=== PATIENT | female | born 1965 | race Caucasian/White ===

== ENCOUNTER 2019-12-29 12:48 | Inpatient (IN) ==
[~2019-12-29 12:48] MED LIST: Povidone-Iodine 45 ML, Sodium Chloride IRRigation 1,000 ML IR ONE; TOTAL JOINT MIXTURE (100ML) INTRAART ONE
[2019-12-29] MEDS ORDERED: Ethanol\\Acetic Acid\\Na Ace\\Ben 1,000 ML IRRIG.SOLN IR ONE ×3 (12:59→14:52)
[2019-12-29] MEDS ORDERED: Vancomycin 1,000 MG VIAL ONE (13:00)
[2019-12-29] MEDS ORDERED: CeFAZolin Syr 2,000MG/20 ML 2,000 MG/20 ML SYRINGE IVPB ONE (13:19)
[2019-12-29] MEDS ORDERED: Ringers Solution, Lactated 1,000 ML IVC SCH (13:30)
[2019-12-29] MEDS ORDERED: *HR* OxyCODONE ER (12 HR) 10 MG TABLET PO ONE (13:49)
[2019-12-29] MEDS ORDERED: Gabapentin 300 MG CAPSULE PO ONE (13:49)
[2019-12-29] MEDS ORDERED: *HR* Succinylcholine 200 MG/10 ML VIAL IVP ONE (13:50)
[2019-12-29] MEDS ORDERED: Ondansetron 4 MG/2 ML VIAL IVP PRN ×2 (13:50→17:29)
[2019-12-29] MEDS ORDERED: *HR* Propofol 200 MG/20 ML VIAL IVP ONE (13:50)
[2019-12-29] MEDS ORDERED: *HR* OxyCODONE Immed Rel 5 MG TABLET PO PRN (13:50)
[2019-12-29] MEDS ORDERED: *HR* Rocuronium Bromide 50 MG/5 ML VIAL ONE (13:50)
[2019-12-29] MEDS ORDERED: *HR* FentaNYL (PF) 100 MCG/2 ML VIAL ONE ×2 (13:50→14:33)
[2019-12-29] MEDS ORDERED: Lidocaine -MPF 2% 2 ML VIAL ONE (13:50)
[2019-12-29] MEDS ORDERED: *HR* HYDROmorphone PF 0.5 MG/0.5 ML SYRINGE IVP PRN (13:50)
[2019-12-29] MEDS ORDERED: Dexamethasone 4 MG/ML VIAL ONE (13:50)
[2019-12-29] MEDS ORDERED: Lidocaine -MPF 4% 5 ML AMPUL ONE (13:51)
[2019-12-29] MEDS ORDERED: *HR* Midazolam HCl 2 MG/2 ML VIAL ONE (13:51)
[2019-12-29] MEDS ORDERED: ROPIVACAINE/PF/NS 0.25% 1 EACH SYRINGE INTRAART ONE (13:57)
[2019-12-29] MEDS ORDERED: Tranexamic Acid 1,000 MG/10 ML VIAL ONE ×2 (14:03→14:04)
[2019-12-29] MEDS ORDERED: *HR* HYDROMORPHONE 2 MG/ML VIAL ONE ×2 (14:05→16:08)
[2019-12-29] MEDS ORDERED: *HR* PHENYLEPHRINE 1,000 MCG/10 ML SYRINGE IVP ONE (16:59)
[2019-12-29] MEDS ORDERED: MOM Conc 10 ML UD.LIQ PO PRN (17:29)
[2019-12-29] MEDS ORDERED: Naloxone 0.4 MG/ML INJ IVP PRN (17:29)
[2019-12-29] MEDS ORDERED: *HR* Dextrose 50 % in Water (Vial) 50 ML VIAL IVP PRN (17:29)
[2019-12-29] MEDS ORDERED: *HR* Promethazine 25 MG/ML VIAL IVP PRN (17:29)
[2019-12-29] MEDS ORDERED: D5% in Water 1,000 ML IVC PRN (17:29)
[2019-12-29] MEDS ORDERED: Sennosides 8.6 MG TABLET PO PRN (17:29)
[2019-12-29] MEDS ORDERED: Dextrose Gel 15 GM/37.5 ML TUBE PO PRN ×2 (17:29)
[2019-12-29 18:01] LABS: Hematocrit 35.9 % (35.3-44.9)
[2019-12-29] MEDS: Insulin LISPRO 300 UNITS/3 ML VIAL SQ SCH (18:27)
[2019-12-29] MEDS: Ascorbic Acid 500 MG TABLET PO SCH (18:27)
[2019-12-29] MEDS: Gabapentin 100 MG CAPSULE PO SCH ×2 (18:27→22:04)
[2019-12-29] MEDS: Venlafaxine XR (24 HR) 150 MG CAP.ER.24H PO SCH (22:04)
[2019-12-29] MEDS: *HR* OxyCODONE Immed Rel 5 MG TABLET PO PRN (22:04)
[2019-12-29] MEDS: CeFAZolin 2 GM/120 ML BAG IVPB SCH (22:05)
[2019-12-30] MEDS: Insulin LISPRO 300 UNITS/3 ML VIAL SQ SCH ×5 (00:23→21:32)
[2019-12-30] MEDS: Ringers Solution, Lactated 1,000 ML IVC SCH (00:30)
[2019-12-30 01:30] LABS: BUN/Creatinine Ratio 22 (6-26); Blood Urea Nitrogen 15 mg/dL (6-20); Calcium 8.7 mg/dL (8.6-10.3); Carbon Dioxide 22 mEq/L (23-29); Chloride 106 mEq/L (98-107); Glucose 216 mg/dL (70-105); Osmolality,Calculated 291 (280-300); Potassium 5.3 mEq/L (3.5-5.1); Sodium 137 mEq/L (136-145); eGFR For African Americans > 60 (> 60); eGFR For Non-African Americans > 60 (> 60)
[2019-12-30 01:46] LABS: Hemoglobin 10.9 g/dL (11.5-15.4); Red Blood Count 3.52 M/mcL (3.82-4.97); White Blood Count 14.9 K/mcL (4.3-11.1)
[2019-12-30 01:53] LABS: Hematocrit 35.7 % (35.3-44.9); Mean Corpuscular HGB Conc 30.5 g/dL (31.6-35.5); Mean Corpuscular Volume 101.4 fL (83.0-100.0); Mean Platelet Volume 10.1 fL (9.4-12.4); Platelet Count 223 K/mcL (140-400); Red Cell Distribution Width 13.4 % (11.5-14.5)
[2019-12-30 01:54] LABS: Basophils % 0.2 %; Eosinophils % 0.1 %; Immature Granulocytes % 1.1 % (0-4); Lymphocytes # 0.7 K/mcL (0.6-4.6); Lymphocytes % 4.8 %; Monocytes # 0.7 K/mcL (0.0-1.3); Monocytes % 4.4 %; Neutrophils # 13.3 K/mcL (1.6-8.9); Segmented Neutrophils % 89.4 %
[2019-12-30] MEDS: traZODone 50 MG TABLET PO SCH ×2 (03:47→21:13)
[2019-12-30] MEDS: *HR* OxyCODONE Immed Rel 5 MG TABLET PO PRN ×4 (05:45→20:05)
[2019-12-30] MEDS: CeFAZolin 2 GM/120 ML BAG IVPB SCH (05:45)
[2019-12-30] MEDS: Cholecalciferol (D-3) 1,000 UNIT (25MCG) TABLET PO SCH (08:13)
[2019-12-30] MEDS: Venlafaxine XR (24 HR) 150 MG CAP.ER.24H PO SCH ×2 (08:13→21:11)
[2019-12-30] MEDS: Multivit/Ca/Min/Fe/FA 1 TAB TABLET PO SCH (08:14)
[2019-12-30] MEDS: Ascorbic Acid 500 MG TABLET PO SCH ×2 (08:15→15:35)
[2019-12-30] MEDS: Gabapentin 100 MG CAPSULE PO SCH ×3 (08:15→21:12)
[2019-12-30] MEDS ORDERED: risperiDONE 1 MG TABLET PO SCH (09:00)
[2019-12-30] MEDS: Aspirin Enteric Coated 81 MG Tablet PO SCH (13:35)
[2019-12-30] MEDS: HYDROcodone BIT/Homatropine 5 MG TABLET PO PRN (17:57)
[2019-12-30] MEDS: risperiDONE 1 MG TABLET PO SCH (21:12)
[2019-12-31] MEDS: HYDROcodone BIT/Homatropine 5 MG TABLET PO PRN ×2 (00:50→20:00)
[2019-12-31 01:04] LABS: Basophils % 0.1 %; Eosinophils % 0.3 %; Hematocrit 28.6 % (35.3-44.9); Immature Granulocytes % 0.8 % (0-4); Lymphocytes # 1.4 K/mcL (0.6-4.6); Lymphocytes % 12.8 %; Mean Corpuscular HGB Conc 32.9 g/dL (31.6-35.5); Mean Corpuscular Hemoglobin 32.2 pg (28.0-33.3); Mean Corpuscular Volume 97.9 fL (83.0-100.0); Mean Platelet Volume 9.9 fL (9.4-12.4); Monocytes # 1.3 K/mcL (0.0-1.3); Monocytes % 11.7 %; Neutrophils # 8.1 K/mcL (1.6-8.9); Platelet Count 178 K/mcL (140-400); Red Blood Count 2.92 M/mcL (3.82-4.97); Red Cell Distribution Width 13.3 % (11.5-14.5); Segmented Neutrophils % 74.3 %; White Blood Count 10.9 K/mcL (4.3-11.1)
[2019-12-31 01:07] LABS: Hemoglobin 9.4 g/dL (11.5-15.4)
[2019-12-31 01:32] LABS: BUN/Creatinine Ratio 18 (6-26); Blood Urea Nitrogen 10 mg/dL (6-20); Calcium 8.5 mg/dL (8.6-10.3); Carbon Dioxide 25 mEq/L (23-29); Chloride 99 mEq/L (98-107); Glucose 126 mg/dL (70-105); Osmolality,Calculated 275 (280-300); Potassium 3.8 mEq/L (3.5-5.1); Sodium 132 mEq/L (136-145); eGFR For African Americans > 60 (> 60); eGFR For Non-African Americans > 60 (> 60)
[2019-12-31] MEDS: *HR* OxyCODONE Immed Rel 5 MG TABLET PO PRN ×4 (05:34→23:56)
[2019-12-31] MEDS: Insulin LISPRO 300 UNITS/3 ML VIAL SQ SCH ×3 (09:05→20:02)
[2019-12-31] MEDS: Multivit/Ca/Min/Fe/FA 1 TAB TABLET PO SCH (10:00)
[2019-12-31] MEDS: Venlafaxine XR (24 HR) 150 MG CAP.ER.24H PO SCH ×2 (10:00→20:01)
[2019-12-31] MEDS: Gabapentin 100 MG CAPSULE PO SCH ×3 (10:00→20:00)
[2019-12-31] MEDS: Cholecalciferol (D-3) 1,000 UNIT (25MCG) TABLET PO SCH (10:00)
[2019-12-31] MEDS: Ascorbic Acid 500 MG TABLET PO SCH ×2 (10:00→16:14)
[2019-12-31] MEDS: Aspirin Enteric Coated 81 MG Tablet PO SCH (10:01)
[2019-12-31] MEDS ORDERED: 0.9 % Sodium Chloride 250 ML ONE ×2 (18:16→22:08)
[2019-12-31] MEDS: traZODone 50 MG TABLET PO SCH (20:01)
[2019-12-31] MEDS: risperiDONE 1 MG TABLET PO SCH (20:01)
[2020-01-01 04:41] LABS: Basophils % 0.3 %; Eosinophils # 0.1 K/mcL (0.0-0.6); Eosinophils % 0.6 %; Hematocrit 27.8 % (35.3-44.9); Hemoglobin 8.7 g/dL (11.5-15.4); Immature Granulocytes % 1.3 % (0-4); Lymphocytes # 1.7 K/mcL (0.6-4.6); Lymphocytes % 17.7 %; Mean Corpuscular HGB Conc 31.3 g/dL (31.6-35.5); Mean Corpuscular Hemoglobin 30.7 pg (28.0-33.3); Mean Corpuscular Volume 98.2 fL (83.0-100.0); Monocytes # 1.1 K/mcL (0.0-1.3); Monocytes % 11.3 %; Neutrophils # 6.4 K/mcL (1.6-8.9); Nucleated Red Blood Cells 0.2 /100 WBC (0); Platelet Count 158 K/mcL (140-400); Red Blood Count 2.83 M/mcL (3.82-4.97); Red Cell Distribution Width 13.4 % (11.5-14.5); Segmented Neutrophils % 68.8 %; White Blood Count 9.4 K/mcL (4.3-11.1)
[2020-01-01] MEDS: HYDROcodone BIT/Homatropine 5 MG TABLET PO PRN (06:15)
[2020-01-01] MEDS: *HR* OxyCODONE Immed Rel 5 MG TABLET PO PRN ×3 (09:30→20:20)
[2020-01-01] MEDS: Cholecalciferol (D-3) 1,000 UNIT (25MCG) TABLET PO SCH (09:31)
[2020-01-01] MEDS: Gabapentin 100 MG CAPSULE PO SCH ×3 (09:31→20:20)
[2020-01-01] MEDS: Aspirin Enteric Coated 81 MG Tablet PO SCH (09:31)
[2020-01-01] MEDS: Venlafaxine XR (24 HR) 150 MG CAP.ER.24H PO SCH ×2 (09:31→20:20)
[2020-01-01] MEDS: Multivit/Ca/Min/Fe/FA 1 TAB TABLET PO SCH (09:32)
[2020-01-01] MEDS: Ascorbic Acid 500 MG TABLET PO SCH ×2 (09:32→17:08)
[2020-01-01] MEDS: Insulin LISPRO 300 UNITS/3 ML VIAL SQ SCH ×4 (09:35→20:17)
[2020-01-01] MEDS: Ringers Solution, Lactated 1,000 ML IVC SCH ×2 (16:20→17:04)
[2020-01-01] MEDS: traZODone 50 MG TABLET PO SCH (20:20)
[2020-01-01] MEDS: risperiDONE 1 MG TABLET PO SCH (20:20)
[2020-01-02] MEDS: Ringers Solution, Lactated 1,000 ML IVC SCH ×2 (05:15→17:54)
[2020-01-02 06:03] LABS: Basophils % 0.6 %; Eosinophils # 0.1 K/mcL (0.0-0.6); Eosinophils % 1.9 %; Hematocrit 28.1 % (35.3-44.9); Immature Granulocytes % 2.2 % (0-4); Lymphocytes # 1.7 K/mcL (0.6-4.6); Lymphocytes % 24.9 %; Mean Corpuscular Hemoglobin 31.8 pg (28.0-33.3); Mean Corpuscular Volume 99.3 fL (83.0-100.0); Mean Platelet Volume 9.6 fL (9.4-12.4); Monocytes # 0.6 K/mcL (0.0-1.3); Neutrophils # 4.3 K/mcL (1.6-8.9); Nucleated Red Blood Cells 0.4 /100 WBC (0); Platelet Count 166 K/mcL (140-400); Red Blood Count 2.83 M/mcL (3.82-4.97); Red Cell Distribution Width 13.4 % (11.5-14.5); Segmented Neutrophils % 61.4 %; White Blood Count 6.9 K/mcL (4.3-11.1)
[2020-01-02 06:24] LABS: BUN/Creatinine Ratio 18 (6-26); Blood Urea Nitrogen 9 mg/dL (6-20); Calcium 8.9 mg/dL (8.6-10.3); Carbon Dioxide 26 mEq/L (23-29); Chloride 105 mEq/L (98-107); Glucose 95 mg/dL (70-105); Osmolality,Calculated 284 (280-300); Potassium 3.7 mEq/L (3.5-5.1); Sodium 138 mEq/L (136-145); eGFR For African Americans > 60 (> 60); eGFR For Non-African Americans > 60 (> 60)
[2020-01-02] MEDS: Cholecalciferol (D-3) 1,000 UNIT (25MCG) TABLET PO SCH (09:19)
[2020-01-02] MEDS: Multivit/Ca/Min/Fe/FA 1 TAB TABLET PO SCH (09:19)
[2020-01-02] MEDS: Insulin LISPRO 300 UNITS/3 ML VIAL SQ SCH ×4 (09:19→20:48)
[2020-01-02] MEDS: *HR* OxyCODONE Immed Rel 5 MG TABLET PO PRN ×2 (09:19→14:37)
[2020-01-02] MEDS: Venlafaxine XR (24 HR) 150 MG CAP.ER.24H PO SCH ×2 (09:20→20:44)
[2020-01-02] MEDS: Gabapentin 100 MG CAPSULE PO SCH ×3 (09:20→20:43)
[2020-01-02] MEDS: Ascorbic Acid 500 MG TABLET PO SCH ×2 (09:20→17:58)
[2020-01-02] MEDS: Aspirin Enteric Coated 81 MG Tablet PO SCH (09:20)
[2020-01-02] MEDS: traZODone 50 MG TABLET PO SCH (20:43)
[2020-01-02] MEDS: risperiDONE 1 MG TABLET PO SCH (20:44)
[2020-01-02] MEDS: HYDROcodone BIT/Homatropine 5 MG TABLET PO PRN (22:09)
[2020-01-03 06:09] LABS: Basophils % 0.6 %; Eosinophils # 0.1 K/mcL (0.0-0.6); Eosinophils % 2.1 %; Hematocrit 25.8 % (35.3-44.9); Hemoglobin 8.3 g/dL (11.5-15.4); Immature Granulocytes % 2.7 % (0-4); Lymphocytes # 1.6 K/mcL (0.6-4.6); Lymphocytes % 24.8 %; Mean Corpuscular HGB Conc 32.2 g/dL (31.6-35.5); Mean Corpuscular Hemoglobin 31.9 pg (28.0-33.3); Mean Corpuscular Volume 99.2 fL (83.0-100.0); Mean Platelet Volume 9.4 fL (9.4-12.4); Monocytes # 0.6 K/mcL (0.0-1.3); Monocytes % 9.6 %; Neutrophils # 3.8 K/mcL (1.6-8.9); Platelet Count 200 K/mcL (140-400); Red Cell Distribution Width 13.6 % (11.5-14.5); Segmented Neutrophils % 60.2 %; White Blood Count 6.2 K/mcL (4.3-11.1)
[2020-01-03] MEDS: *HR* OxyCODONE Immed Rel 5 MG TABLET PO PRN ×4 (06:23→21:28)
[2020-01-03 06:27] LABS: BUN/Creatinine Ratio 15 (6-26); Blood Urea Nitrogen 8 mg/dL (6-20); Calcium 8.8 mg/dL (8.6-10.3); Carbon Dioxide 28 mEq/L (23-29); Chloride 107 mEq/L (98-107); Glucose 100 mg/dL (70-105); Osmolality,Calculated 288 (280-300); Potassium 3.8 mEq/L (3.5-5.1); Sodium 140 mEq/L (136-145); eGFR For African Americans > 60 (> 60); eGFR For Non-African Americans > 60 (> 60)
[2020-01-03] MEDS: Insulin LISPRO 300 UNITS/3 ML VIAL SQ SCH ×4 (07:20→21:25)
[2020-01-03] MEDS: Aspirin Enteric Coated 81 MG Tablet PO SCH (08:18)
[2020-01-03] MEDS: Multivit/Ca/Min/Fe/FA 1 TAB TABLET PO SCH (08:18)
[2020-01-03] MEDS: Gabapentin 100 MG CAPSULE PO SCH ×3 (08:18→21:24)
[2020-01-03] MEDS: Venlafaxine XR (24 HR) 150 MG CAP.ER.24H PO SCH ×2 (08:18→21:25)
[2020-01-03] MEDS: Ascorbic Acid 500 MG TABLET PO SCH ×2 (08:18→17:06)
[2020-01-03] MEDS: Cholecalciferol (D-3) 1,000 UNIT (25MCG) TABLET PO SCH (08:19)
[2020-01-03] MEDS: HYDROcodone BIT/Homatropine 5 MG TABLET PO PRN (13:56)
[2020-01-03] MEDS: Ringers Solution, Lactated 1,000 ML IVC SCH ×2 (21:25→21:26)
[2020-01-03] MEDS: traZODone 50 MG TABLET PO SCH (21:25)
[2020-01-03] MEDS: risperiDONE 1 MG TABLET PO SCH (21:25)
[2020-01-04] MEDS: *HR* OxyCODONE Immed Rel 5 MG TABLET PO PRN ×3 (06:17→16:23)
[2020-01-04] MEDS: Ringers Solution, Lactated 1,000 ML IVC SCH (08:10)
[2020-01-04] MEDS: Insulin LISPRO 300 UNITS/3 ML VIAL SQ SCH ×2 (08:11→11:29)
[2020-01-04] MEDS: Gabapentin 100 MG CAPSULE PO SCH ×2 (08:12→14:09)
[2020-01-04] MEDS: Cholecalciferol (D-3) 1,000 UNIT (25MCG) TABLET PO SCH (08:12)
[2020-01-04] MEDS: Ascorbic Acid 500 MG TABLET PO SCH (08:12)
[2020-01-04] MEDS: Aspirin Enteric Coated 81 MG Tablet PO SCH (08:12)
[2020-01-04] MEDS: Multivit/Ca/Min/Fe/FA 1 TAB TABLET PO SCH (08:12)
[2020-01-04] MEDS: Venlafaxine XR (24 HR) 150 MG CAP.ER.24H PO SCH (08:12)
[2020-01-04 13:12] VITALS: BP 137/86
[2020-01-04] MEDS: HYDROcodone BIT/Homatropine 5 MG TABLET PO PRN (14:09)
[2020-01-04 15:00] LABS: Adenovirus Not Detected (Not Detect); Bordetella Pertussis Not Detected (Not Detect); Chlamydophila pneumoniae Not Detected (Not Detect); Coronavirus 229E Not Detected (Not Detect); Coronavirus HKU1 Not Detected (Not Detect); Coronavirus NL63 Not Detected (Not Detect); Coronavirus OC43 Not Detected (Not Detect); Human Metapneumovirus Not Detected (Not Detect); Human Rhinovirus/Enterovirus Not Detected (Not Detect); Influenza A Subtype 2009 H1 Not Detected (Not Detect); Influenza B Not Detected (Not Detect); Mycoplasma pneumoniae Not Detected (Not Detect); Parainfluenza Virus 1 Not Detected (Not Detect); Parainfluenza Virus 2 Not Detected (Not Detect); Parainfluenza Virus 3 Not Detected (Not Detect); Parainfluenza Virus 4 Not Detected (Not Detect); Respiratory Syncytial Virus Not Detected (Not Detect); SARS-CoV-2 Not Detected (Not Detect)
== END 2020-01-04 16:47 | DRG 462 ==
LOC: SAMDAY 12:48 → 3NENU 12:48
PROVIDERS: ADMIT Orthopaedic Surgery; ATTEND Orthopaedic Surgery

== ENCOUNTER 2020-09-23 11:23 | Observation (INO) ==
[2020-09-23] MEDS ORDERED: Ketorolac 15 MG/ML VIAL IVP ONE (11:42)
[2020-09-23] MEDS ORDERED: Isovue-370 500 ML BOTTLE IVP ONE (11:43)
[2020-09-23 11:53] LABS: Basophils % 0.4 %; Eosinophils % 0.3 %; Hematocrit 37.7 % (35.3-44.9); Hemoglobin 12.5 g/dL (11.5-15.4); Immature Granulocytes % 1.7 % (0-4); Lymphocytes # 3.4 K/mcL (0.6-4.6); Mean Corpuscular HGB Conc 33.2 g/dL (31.6-35.5); Mean Corpuscular Hemoglobin 31.4 pg (28.0-33.3); Mean Corpuscular Volume 94.7 fL (83.0-100.0); Mean Platelet Volume 9.9 fL (9.4-12.4); Monocytes % 8.9 %; Neutrophils # 6.4 K/mcL (1.6-8.9); Platelet Count 224 K/mcL (140-400); Red Blood Count 3.98 M/mcL (3.82-4.97); Red Cell Distribution Width 14.1 % (11.5-14.5); Segmented Neutrophils % 57.7 %
[2020-09-23 12:14] LABS: Alanine Aminotransferase 21 Units/L (7-52); Albumin 4.1 g/dL (3.5-5.7); Albumin/Globulin Ratio 1.8 (1.1-2.2); Alkaline Phosphatase 82 Units/L (34-104); Aspartate Amino Transferase 13 Units/L (13-39); BUN/Creatinine Ratio 20 (6-26); Bilirubin,Direct 0.1 mg/dL (0.0-0.2); Bilirubin,Indirect 0.3 mg/dL (0.0-1.0); Bilirubin,Total 0.4 mg/dL (0.3-1.0); Blood Urea Nitrogen 13 mg/dL (6-20); Calcium 9.4 mg/dL (8.6-10.3); Carbon Dioxide 28 mEq/L (23-29); Chloride 106 mEq/L (98-107); Globulin 2.3 g/dL (2.4-3.5); Glucose 101 mg/dL (70-105); Osmolality,Calculated 290 (280-300); Potassium 3.5 mEq/L (3.5-5.1); Sodium 140 mEq/L (136-145); Total Protein 6.4 g/dL (6.4-8.9); eGFR For African Americans > 60 (> 60); eGFR For Non-African Americans > 60 (> 60)
[2020-09-23] MEDS ORDERED: *HR* HYDROmorphone (PF) 1 MG/ML SYRINGE IVP ONE (12:48)
[2020-09-23] MEDS ORDERED: 0.9 % Sodium Chloride 1,000 ML ONE ×2 (14:02→14:08)
[2020-09-23] MEDS ORDERED: 0.9 % Sodium Chloride 1,000 ML IVC ONE (14:08)
[2020-09-23] MEDS ORDERED: Naloxone 0.4 MG/ML INJ IVP ONE (14:08)
[2020-09-23] MEDS ORDERED: Ondansetron 4 MG/2 ML VIAL ONE (14:15)
[2020-09-23] MEDS ORDERED: Ondansetron 4 MG/2 ML VIAL IVP ONE (14:15)
[2020-09-23] MEDS ORDERED: Lidocaine/EPI 1:100k 1% 50 ML VIAL ONE (14:27)
[2020-09-23] MEDS ORDERED: 0.9 % Sodium Chloride 500 ML ONE (14:27)
[2020-09-23] MEDS ORDERED: Heparin 1,000 UNITS/500 mL 500 ML ONE ×2 (14:27→14:34)
[2020-09-23] MEDS ORDERED: Acetaminophen 325 MG TABLET PO PRN (15:40)
[2020-09-23] MEDS ORDERED: Naloxone 0.4 MG/ML INJ IVP PRN (16:02)
[2020-09-23] MEDS: *HR* OxyCODONE/APAP 5/325 TABLET PO PRN ×2 (17:56→23:51)
[2020-09-23] MEDS ORDERED: Azithromycin 250 MG TABLET PO ONE (18:15)
[2020-09-23 20:08] LABS: Bilirubin,Urine Negative (Negative); Blood,Urine Negative (Negative); Clarity,Urine Clear (Clear); Color,Urine Colorless (Yellow); Glucose,Urine (UA) Normal (Normal); Ketones,Urine Negative (Negative); Leukocyte Esterase,Urine Negative (Negative); Nitrite,Urine Negative (Negative); PH,Urine 6.5 pH Units (5.0-8.0); Protein,Urine Trace mg/dL (Neg-Trace); Specific Gravity,Urine > 1.030 (1.010-1.025); Urobilinogen,Urine Normal (Normal)
[2020-09-23] MEDS ORDERED: Ondansetron 4 MG/2 ML VIAL IVP PRN (20:25)
[2020-09-23 20:38] LABS: Amphetamine Screen,Urine Negative ng/mL (Cutoff=1000); Barbiturate Screen,Urine Negative ng/mL (Cutoff=200); Benzodiazepines Screen,Urine Negative ng/mL (Cutoff=200); Cannabinoid Screen,Urine Negative ng/mL (Cutoff = 50); Cocaine Screen,Urine Negative ng/mL (Cutoff= 300); Opiate Screen,Urine Positive ng/mL (Cutoff=300); Phencyclidine Screen,Urine Negative ng/mL (Cutoff=25)
[2020-09-23] MEDS: Venlafaxine XR (24 HR) 150 MG CAP.ER.24H PO SCH (20:54)
[2020-09-23] MEDS: Gabapentin 100 MG CAPSULE PO SCH (20:54)
[2020-09-23] MEDS ORDERED: traZODone 50 MG TABLET PO SCH (21:00)
[2020-09-24] MEDS ORDERED: *HR* Promethazine 25 MG/ML VIAL IM ONE (00:06)
[2020-09-24 01:12] LABS: Basophils # 0.1 K/mcL (0.0-0.2); Basophils % 0.3 %; Eosinophils % 0.1 %; Hematocrit 30.6 % (35.3-44.9); Immature Granulocytes % 1.6 % (0-4); Lymphocytes # 1.5 K/mcL (0.6-4.6); Mean Corpuscular HGB Conc 31.7 g/dL (31.6-35.5); Mean Corpuscular Hemoglobin 30.6 pg (28.0-33.3); Mean Corpuscular Volume 96.5 fL (83.0-100.0); Mean Platelet Volume 9.8 fL (9.4-12.4); Monocytes # 1.1 K/mcL (0.0-1.3); Monocytes % 7.5 %; Neutrophils # 11.8 K/mcL (1.6-8.9); Platelet Count 210 K/mcL (140-400); Red Blood Count 3.17 M/mcL (3.82-4.97); Red Cell Distribution Width 14.4 % (11.5-14.5); Segmented Neutrophils % 80.5 %; White Blood Count 14.7 K/mcL (4.3-11.1)
[2020-09-24 01:14] LABS: Hemoglobin 9.7 g/dL (11.5-15.4)
[2020-09-24 01:34] LABS: Alanine Aminotransferase 20 Units/L (7-52); Albumin 3.6 g/dL (3.5-5.7); Albumin/Globulin Ratio 1.8 (1.1-2.2); Alkaline Phosphatase 70 Units/L (34-104); Aspartate Amino Transferase 15 Units/L (13-39); BUN/Creatinine Ratio 23 (6-26); Bilirubin,Direct 0.1 mg/dL (0.0-0.2); Bilirubin,Indirect 0.2 mg/dL (0.0-1.0); Bilirubin,Total 0.3 mg/dL (0.3-1.0); Blood Urea Nitrogen 12 mg/dL (6-20); Calcium 8.5 mg/dL (8.6-10.3); Carbon Dioxide 20 mEq/L (23-29); Chloride 109 mEq/L (98-107); Glucose 117 mg/dL (70-105); Magnesium 1.9 mg/dL (1.6-2.6); Osmolality,Calculated 287 (280-300); Phosphorous 3.9 mg/dL (2.7-4.5); Potassium 4.1 mEq/L (3.5-5.1); Sodium 138 mEq/L (136-145); Total Protein 5.6 g/dL (6.4-8.9); eGFR For African Americans > 60 (> 60); eGFR For Non-African Americans > 60 (> 60)
[2020-09-24] MEDS: *HR* OxyCODONE/APAP 5/325 TABLET PO PRN ×2 (06:10→12:38)
[2020-09-24 07:53] LABS: Basophils # 0.1 K/mcL (0.0-0.2); Basophils % 0.3 %; Eosinophils % 0.1 %; Hematocrit 28.9 % (35.3-44.9); Hemoglobin 8.9 g/dL (11.5-15.4); Immature Granulocytes % 1.4 % (0-4); Lymphocytes # 2.1 K/mcL (0.6-4.6); Lymphocytes % 14.6 %; Mean Corpuscular HGB Conc 30.8 g/dL (31.6-35.5); Mean Corpuscular Hemoglobin 30.3 pg (28.0-33.3); Mean Corpuscular Volume 98.3 fL (83.0-100.0); Mean Platelet Volume 10.1 fL (9.4-12.4); Monocytes # 1.1 K/mcL (0.0-1.3); Monocytes % 7.7 %; Neutrophils # 11.1 K/mcL (1.6-8.9); Platelet Count 224 K/mcL (140-400); Red Blood Count 2.94 M/mcL (3.82-4.97); Red Cell Distribution Width 14.5 % (11.5-14.5); Segmented Neutrophils % 75.9 %; White Blood Count 14.6 K/mcL (4.3-11.1)
[2020-09-24] MEDS: Gabapentin 100 MG CAPSULE PO SCH ×2 (08:09→14:19)
[2020-09-24] MEDS: Venlafaxine XR (24 HR) 150 MG CAP.ER.24H PO SCH (08:09)
[2020-09-24] MEDS ORDERED: Cholecalciferol (D-3) 1,000 UNIT (25MCG) TABLET PO SCH (09:00)
[2020-09-24 11:02] LABS: Hematocrit 29.8 % (35.3-44.9); Hemoglobin 9.2 g/dL (11.5-15.4)
[2020-09-24] MEDS ORDERED: *HR* OxyCODONE/APAP 5/325 TABLET PO PRN (14:02)
[2020-09-24 16:30] VITALS: BP 100/68; PULSE 92; TEMP 98
[2020-09-24 17:14] VITALS: O2SAT 97
== END 2020-09-24 20:34 | disposition home or self-care (01) ==
LOC: 2NENU 11:23 → EMEROOARM 11:23 → 2NENU 15:42
PROVIDERS: ADMIT Internal Medicine; ATTEND Internal Medicine

== ENCOUNTER 2020-09-27 18:48 | Inpatient (IN) ==
[2020-09-27 21:43] LABS: Basophils % 0.2 %; Eosinophils # 0.1 K/mcL (0.0-0.6); Eosinophils % 0.7 %; Hematocrit 24.8 % (35.3-44.9); Immature Granulocytes % 2.5 % (0-4); Lymphocytes % 6.4 %; Mean Corpuscular HGB Conc 32.3 g/dL (31.6-35.5); Mean Corpuscular Hemoglobin 30.5 pg (28.0-33.3); Mean Corpuscular Volume 94.7 fL (83.0-100.0); Mean Platelet Volume 9.6 fL (9.4-12.4); Monocytes # 1.3 K/mcL (0.0-1.3); Monocytes % 8.2 %; Neutrophils # 12.7 K/mcL (1.6-8.9); Nucleated Red Blood Cells 0.2 /100 WBC (0); Platelet Count 284 K/mcL (140-400); Red Blood Count 2.62 M/mcL (3.82-4.97); Red Cell Distribution Width 14.2 % (11.5-14.5); White Blood Count 15.5 K/mcL (4.3-11.1)
[2020-09-27 22:02] LABS: BUN/Creatinine Ratio 22 (6-26); Blood Urea Nitrogen 11 mg/dL (6-20); Calcium 8.6 mg/dL (8.6-10.3); Carbon Dioxide 25 mEq/L (23-29); Chloride 94 mEq/L (98-107); Glucose 92 mg/dL (70-105); Osmolality,Calculated 267 (280-300); Potassium 3.4 mEq/L (3.5-5.1); Sodium 129 mEq/L (136-145); eGFR For African Americans > 60 (> 60); eGFR For Non-African Americans > 60 (> 60)
[2020-09-27] MEDS ORDERED: Ondansetron 4 MG/2 ML VIAL IVP ONE (23:04)
[2020-09-27] MEDS ORDERED: 0.9 % Sodium Chloride 1,000 ML IVC ONE (23:04)
[2020-09-27] MEDS ORDERED: *HR* FentaNYL (PF) 100 MCG/2 ML VIAL IVP ONE (23:04)
[2020-09-27] MEDS ORDERED: *HR* HYDROcodone/Acet 5/325 mg TABLET PO ONE (23:58)
[2020-09-28 00:47] LABS: Hematocrit 23.4 % (35.3-44.9); Hemoglobin 7.8 g/dL (11.5-15.4)
[2020-09-28] MEDS ORDERED: Naloxone 0.4 MG/ML INJ IVP PRN (01:47)
[2020-09-28] MEDS ORDERED: 0.9 % Sodium Chloride 1,000 ML IVC SCH (02:00)
[2020-09-28 06:23] LABS: Hematocrit 22.9 % (35.3-44.9); Hemoglobin 7.2 g/dL (11.5-15.4); Mean Corpuscular HGB Conc 31.4 g/dL (31.6-35.5); Mean Corpuscular Hemoglobin 30.1 pg (28.0-33.3); Mean Corpuscular Volume 95.8 fL (83.0-100.0); Mean Platelet Volume 9.9 fL (9.4-12.4); Platelet Count 257 K/mcL (140-400); Red Blood Count 2.39 M/mcL (3.82-4.97); Red Cell Distribution Width 14.1 % (11.5-14.5); White Blood Count 11.9 K/mcL (4.3-11.1)
[2020-09-28 06:41] LABS: BUN/Creatinine Ratio 20 (6-26); Blood Urea Nitrogen 9 mg/dL (6-20); Calcium 8.3 mg/dL (8.6-10.3); Carbon Dioxide 25 mEq/L (23-29); Chloride 99 mEq/L (98-107); Glucose 89 mg/dL (70-105); Osmolality,Calculated 272 (280-300); Potassium 3.3 mEq/L (3.5-5.1); Sodium 132 mEq/L (136-145); eGFR For African Americans > 60 (> 60); eGFR For Non-African Americans > 60 (> 60)
[2020-09-28 07:02] LABS: INR 1.4; Prothrombin Time 16.3 Seconds (9.4-12.1)
[2020-09-28 07:05] LABS: Activated Partial Thrombo Time 25.5 Seconds (26.0-36.0)
[2020-09-28] MEDS ORDERED: Piperacillin/Tazobactam 3.375 GM in 0.9 % Sodium Chloride Mini Bag 100 ML IVPB SCH (08:00)
[2020-09-28] MEDS ORDERED: Isovue-370 500 ML BOTTLE IVP ONE (08:28)
[2020-09-28] MEDS: MetroNIDAZOLE 500 MG/100 ML 500 MG/100 ML BAG IVPB SCH ×2 (08:41→15:35)
[2020-09-28 10:25] LABS: Hemoglobin 6.9 g/dL (11.5-15.4)
[2020-09-28] MEDS ORDERED: *HR* OxyCODONE Immed Rel 5 MG TABLET PO ONE ×2 (13:16→15:30)
[2020-09-28] MEDS ORDERED: Iron Sucrose Complex 400 MG in 0.9 % Sodium Chloride 250 ML IVPB ONE (16:30)
[2020-09-28] MEDS: Pantoprazole 40 MG VIAL IVP SCH (17:34)
[2020-09-28 21:36] LABS: Adenovirus F 40/41 PCR Not detected (Not detect); Astrovirus PCR Not detected (Not detect); C.difficile Toxin A/B Gene PCR Not detected (Not detect); Campylobacter by PCR Not detected (Not detect); Cryptosporidium by PCR Not detected (Not detect); Cyclospora cayetanensis PCR Not detected (Not detect); E. coli O157 by PCR Not detected (Not detect); Entamoeba histolytica PCR Not detected (Not detect); Enteroaggregative E.coli(EAEC) Not detected (Not detect); Enteropathogenic E.coli(EPEC) Not detected (Not detect); Enterotoxigenic E.coli (ETEC) Not detected (Not detect); Giardia lamblia PCR Not detected (Not detect); Norovirus GI/GII PCR Not detected (Not detect); Plesiomonas shigelloides PCR Not detected (Not detect); Salmonella PCR Not detected (Not detect); Shig/EnteroinvasiveE coli EIEC Not detected (Not detect); Shigalike tox-prod E coli STEC Not detected (Not detect); Vibrio PCR Not detected (Not detect); Vibrio cholerae PCR Not detected (Not detect); Yersinia enterocolitica PCR Not detected (Not detect)
[2020-09-28 21:37] LABS: Rotavirus A PCR Not detected (Not detect); Sapovirus PCR Not detected (Not detect)
[2020-09-29] MEDS: *HR* OxyCODONE Immed Rel 5 MG TABLET PO PRN ×3 (00:16→17:37)
[2020-09-29] MEDS: Melatonin 3 MG TABLET PO PRN ×2 (00:16→23:33)
[2020-09-29] MEDS: MetroNIDAZOLE 500 MG/100 ML 500 MG/100 ML BAG IVPB SCH ×4 (00:17→23:32)
[2020-09-29] MEDS: Prochlorperazine 10 MG/2 ML VIAL IVP PRN (02:54)
[2020-09-29] MEDS ORDERED: Acetaminophen IV 1,000 MG/100 ML BAG IVPB ONE ×2 (03:13→22:49)
[2020-09-29] MEDS ORDERED: Venlafaxine XR (24 HR) 150 MG CAP.ER.24H PO ONE (03:24)
[2020-09-29] MEDS: Pantoprazole 40 MG VIAL IVP SCH ×2 (05:30→17:33)
[2020-09-29 07:15] LABS: Hematocrit 24.2 % (35.3-44.9); Hemoglobin 7.7 g/dL (11.5-15.4); Mean Corpuscular HGB Conc 31.8 g/dL (31.6-35.5); Mean Corpuscular Hemoglobin 30.1 pg (28.0-33.3); Mean Corpuscular Volume 94.5 fL (83.0-100.0); Mean Platelet Volume 9.9 fL (9.4-12.4); Platelet Count 265 K/mcL (140-400); Red Blood Count 2.56 M/mcL (3.82-4.97); Red Cell Distribution Width 14.4 % (11.5-14.5); White Blood Count 9.5 K/mcL (4.3-11.1)
[2020-09-29 07:39] LABS: Alanine Aminotransferase 22 Units/L (7-52); Albumin 2.9 g/dL (3.5-5.7); Albumin/Globulin Ratio 1.4 (1.1-2.2); Alkaline Phosphatase 80 Units/L (34-104); Aspartate Amino Transferase 24 Units/L (13-39); BUN/Creatinine Ratio 13 (6-26); Bilirubin,Total 0.7 mg/dL (0.3-1.0); Blood Urea Nitrogen 5 mg/dL (6-20); Calcium 8.2 mg/dL (8.6-10.3); Carbon Dioxide 21 mEq/L (23-29); Chloride 102 mEq/L (98-107); Globulin 2.1 g/dL (2.4-3.5); Glucose 87 mg/dL (70-105); Osmolality,Calculated 275 (280-300); Potassium 3.1 mEq/L (3.5-5.1); Sodium 134 mEq/L (136-145); eGFR For African Americans > 60 (> 60); eGFR For Non-African Americans > 60 (> 60)
[2020-09-29] MEDS ORDERED: *HR* HYDROmorphone (PF) 1 MG/ML SYRINGE IVP ONE (09:19)
[2020-09-29] MEDS: Gabapentin 100 MG CAPSULE PO SCH ×3 (10:27→20:55)
[2020-09-29] MEDS: Ringers Solution, Lactated 1,000 ML IVC SCH (13:00)
[2020-09-29 14:25] LABS: Hematocrit 26.1 % (35.3-44.9); Hemoglobin 8.2 g/dL (11.5-15.4)
[2020-09-29] MEDS: Venlafaxine XR (24 HR) 150 MG CAP.ER.24H PO SCH (20:55)
[2020-09-30] MEDS ORDERED: Prochlorperazine 10 MG/2 ML VIAL IVP PRN (00:55)
[2020-09-30 01:52] LABS: Hematocrit 27.1 % (35.3-44.9); Hemoglobin 8.9 g/dL (11.5-15.4); Mean Corpuscular HGB Conc 32.8 g/dL (31.6-35.5); Mean Corpuscular Hemoglobin 30.8 pg (28.0-33.3); Mean Corpuscular Volume 93.8 fL (83.0-100.0); Mean Platelet Volume 9.2 fL (9.4-12.4); Platelet Count 325 K/mcL (140-400); Red Blood Count 2.89 M/mcL (3.82-4.97); Red Cell Distribution Width 14.7 % (11.5-14.5); White Blood Count 11.3 K/mcL (4.3-11.1)
[2020-09-30 02:10] LABS: Alanine Aminotransferase 25 Units/L (7-52); Albumin 3.3 g/dL (3.5-5.7); Albumin/Globulin Ratio 1.3 (1.1-2.2); Alkaline Phosphatase 78 Units/L (34-104); Aspartate Amino Transferase 25 Units/L (13-39); BUN/Creatinine Ratio 7 (6-26); Bilirubin,Total 0.8 mg/dL (0.3-1.0); Blood Urea Nitrogen 3 mg/dL (6-20); Calcium 8.7 mg/dL (8.6-10.3); Carbon Dioxide 20 mEq/L (23-29); Chloride 104 mEq/L (98-107); Globulin 2.5 g/dL (2.4-3.5); Glucose 94 mg/dL (70-105); Osmolality,Calculated 278 (280-300); Potassium 3.3 mEq/L (3.5-5.1); Sodium 136 mEq/L (136-145); Total Protein 5.8 g/dL (6.4-8.9); eGFR For African Americans > 60 (> 60); eGFR For Non-African Americans > 60 (> 60)
[2020-09-30] MEDS: Prochlorperazine 10 MG/2 ML VIAL IVP PRN (05:07)
[2020-09-30] MEDS ORDERED: Acetaminophen IV 500 MG/50 ML BAG IVPB ONE ×2 (05:33→18:22)
[2020-09-30] MEDS: Pantoprazole 40 MG VIAL IVP SCH ×2 (06:23→17:01)
[2020-09-30] MEDS: MetroNIDAZOLE 500 MG/100 ML 500 MG/100 ML BAG IVPB SCH ×2 (07:37→16:09)
[2020-09-30] MEDS ORDERED: Lidocaine -MPF 2% 5 ML VIAL ONE (08:32)
[2020-09-30 08:34] LABS: % Iron Saturation 10 % (15-50); Iron 29 mcg/dL (50-170); Transferrin 209 mg/dL (203-362)
[2020-09-30] MEDS: Gabapentin 100 MG CAPSULE PO SCH ×3 (09:19→19:28)
[2020-09-30] MEDS: Venlafaxine XR (24 HR) 150 MG CAP.ER.24H PO SCH ×2 (09:19→19:27)
[2020-09-30] MEDS ORDERED: *HR* Propofol 200 MG/20 ML VIAL IVP ONE (10:48)
[2020-09-30] MEDS: Ringers Solution, Lactated 1,000 ML IVC SCH ×2 (11:46→17:14)
[2020-09-30] MEDS: *HR* OxyCODONE Immed Rel 5 MG TABLET PO PRN ×2 (11:53→21:00)
[2020-09-30 15:06] LABS: Hematocrit 27.8 % (35.3-44.9); Hemoglobin 8.8 g/dL (11.5-15.4)
[2020-10-01] MEDS: Melatonin 3 MG TABLET PO PRN ×2 (00:05→23:59)
[2020-10-01] MEDS: MetroNIDAZOLE 500 MG/100 ML 500 MG/100 ML BAG IVPB SCH ×4 (00:05→23:59)
[2020-10-01 05:05] LABS: Hematocrit 26.2 % (35.3-44.9); Hemoglobin 8.3 g/dL (11.5-15.4); Mean Corpuscular HGB Conc 31.7 g/dL (31.6-35.5); Mean Corpuscular Volume 94.6 fL (83.0-100.0); Mean Platelet Volume 8.9 fL (9.4-12.4); Platelet Count 315 K/mcL (140-400); Red Blood Count 2.77 M/mcL (3.82-4.97); Red Cell Distribution Width 15.1 % (11.5-14.5); White Blood Count 10.1 K/mcL (4.3-11.1)
[2020-10-01 05:18] LABS: Alanine Aminotransferase 20 Units/L (7-52); Albumin 3.1 g/dL (3.5-5.7); Albumin/Globulin Ratio 1.5 (1.1-2.2); Alkaline Phosphatase 71 Units/L (34-104); Aspartate Amino Transferase 18 Units/L (13-39); BUN/Creatinine Ratio 8 (6-26); Bilirubin,Total 0.6 mg/dL (0.3-1.0); Blood Urea Nitrogen 3 mg/dL (6-20); Calcium 8.4 mg/dL (8.6-10.3); Carbon Dioxide 24 mEq/L (23-29); Chloride 104 mEq/L (98-107); Globulin 2.1 g/dL (2.4-3.5); Glucose 93 mg/dL (70-105); Osmolality,Calculated 280 (280-300); Potassium 3.2 mEq/L (3.5-5.1); Sodium 137 mEq/L (136-145); Total Protein 5.2 g/dL (6.4-8.9); eGFR For African Americans > 60 (> 60); eGFR For Non-African Americans > 60 (> 60)
[2020-10-01] MEDS: Pantoprazole 40 MG VIAL IVP SCH ×2 (06:41→17:04)
[2020-10-01] MEDS: *HR* OxyCODONE Immed Rel 5 MG TABLET PO PRN ×3 (06:42→23:59)
[2020-10-01] MEDS: Ringers Solution, Lactated 1,000 ML IVC SCH ×2 (08:49→19:05)
[2020-10-01] MEDS: Gabapentin 100 MG CAPSULE PO SCH ×3 (08:58→20:23)
[2020-10-01] MEDS: Venlafaxine XR (24 HR) 150 MG CAP.ER.24H PO SCH ×2 (08:58→20:23)
[2020-10-01 14:11] LABS: Hemoglobin 9.7 g/dL (11.5-15.4)
[2020-10-01 14:15] LABS: Hematocrit 32.5 % (35.3-44.9)
[2020-10-02] MEDS: Pantoprazole 40 MG VIAL IVP SCH (05:35)
[2020-10-02 06:00] LABS: Hematocrit 26.2 % (35.3-44.9); Hemoglobin 8.1 g/dL (11.5-15.4); Mean Corpuscular HGB Conc 30.9 g/dL (31.6-35.5); Mean Corpuscular Hemoglobin 29.9 pg (28.0-33.3); Mean Corpuscular Volume 96.7 fL (83.0-100.0); Mean Platelet Volume 9.1 fL (9.4-12.4); Platelet Count 319 K/mcL (140-400); Red Blood Count 2.71 M/mcL (3.82-4.97); Red Cell Distribution Width 15.1 % (11.5-14.5); White Blood Count 10.2 K/mcL (4.3-11.1)
[2020-10-02 06:20] LABS: Alanine Aminotransferase 20 Units/L (7-52); Albumin/Globulin Ratio 1.4 (1.1-2.2); Alkaline Phosphatase 70 Units/L (34-104); Aspartate Amino Transferase 22 Units/L (13-39); BUN/Creatinine Ratio 11 (6-26); Bilirubin,Total 0.6 mg/dL (0.3-1.0); Blood Urea Nitrogen 5 mg/dL (6-20); Calcium 8.5 mg/dL (8.6-10.3); Carbon Dioxide 24 mEq/L (23-29); Chloride 106 mEq/L (98-107); Globulin 2.2 g/dL (2.4-3.5); Glucose 100 mg/dL (70-105); Osmolality,Calculated 281 (280-300); Potassium 3.5 mEq/L (3.5-5.1); Sodium 137 mEq/L (136-145); Total Protein 5.2 g/dL (6.4-8.9); eGFR For African Americans > 60 (> 60); eGFR For Non-African Americans > 60 (> 60)
[2020-10-02] MEDS: Venlafaxine XR (24 HR) 150 MG CAP.ER.24H PO SCH (07:50)
[2020-10-02] MEDS: Gabapentin 100 MG CAPSULE PO SCH (07:51)
[2020-10-02] MEDS: MetroNIDAZOLE 500 MG/100 ML 500 MG/100 ML BAG IVPB SCH (07:53)
[2020-10-02] MEDS: *HR* OxyCODONE Immed Rel 5 MG TABLET PO PRN (07:58)
[2020-10-02 10:57] VITALS: BP 114/75; PULSE 92; TEMP 98.7; O2SAT 95
== END 2020-10-02 14:37 | disposition home or self-care (01) | DRG 919 ==
LOC: 3BNU 18:48 → EMEROOARM 18:48 → SUATTDRO 09-28 01:16 → 3BNU 09-28 03:31 → SUATTDRO 09-30 18:37
PROVIDERS: ADMIT Student in an Organized Health Care Education/Training Program; ATTEND Registered Nurse
PROC: ENDOEBX (2020-09-30 13:00)
PROC: ENDOCBX (2020-09-30 13:00)

== ENCOUNTER 2020-10-20 07:08 | Observation (INO) ==
[2020-10-20] MEDS ORDERED: Ondansetron 4 MG/2 ML VIAL ONE (07:38)
[2020-10-20] MEDS ORDERED: *HR* Rocuronium Bromide 50 MG/5 ML VIAL ONE (07:38)
[2020-10-20] MEDS ORDERED: Lidocaine -MPF 2% 2 ML VIAL ONE (07:38)
[2020-10-20] MEDS ORDERED: *HR* Midazolam HCl 2 MG/2 ML VIAL ONE (07:38)
[2020-10-20] MEDS ORDERED: *HR* FentaNYL (PF) 100 MCG/2 ML VIAL ONE (07:38)
[2020-10-20] MEDS ORDERED: *HR* Propofol 200 MG/20 ML VIAL IVP ONE (07:38)
[2020-10-20] MEDS ORDERED: Ondansetron 4 MG/2 ML VIAL IVP PRN ×3 (07:44→12:54)
[2020-10-20] MEDS ORDERED: Naloxone 0.4 MG/ML INJ IVP PRN ×3 (07:44→12:54)
[2020-10-20] MEDS ORDERED: *HR* Metoprolol 5 MG/5 ML VIAL IVP PRN ×2 (07:44→12:54)
[2020-10-20] MEDS ORDERED: *HR* HYDROcodone/Acet 5/325 mg TABLET PO PRN (07:45)
[2020-10-20] MEDS ORDERED: modafiniL 100 MG TABLET PO SCH (08:00)
[2020-10-20 08:51] LABS: Basophils # 0.1 K/mcL (0.0-0.2); Eosinophils # 0.3 K/mcL (0.0-0.6); Eosinophils % 3.8 %; Hematocrit 38.1 % (35.3-44.9); Immature Granulocytes % 1.2 % (0-4); Lymphocytes # 1.3 K/mcL (0.6-4.6); Lymphocytes % 18.5 %; Mean Corpuscular HGB Conc 31.5 g/dL (31.6-35.5); Mean Corpuscular Hemoglobin 30.4 pg (28.0-33.3); Mean Corpuscular Volume 96.5 fL (83.0-100.0); Mean Platelet Volume 9.7 fL (9.4-12.4); Monocytes # 0.7 K/mcL (0.0-1.3); Monocytes % 10.8 %; Neutrophils # 4.5 K/mcL (1.6-8.9); Platelet Count 321 K/mcL (140-400); Red Blood Count 3.95 M/mcL (3.82-4.97); Red Cell Distribution Width 15.4 % (11.5-14.5); Segmented Neutrophils % 64.7 %; White Blood Count 6.9 K/mcL (4.3-11.1)
[2020-10-20 08:58] LABS: INR 1.2; Prothrombin Time 13.5 Seconds (9.4-12.1)
[2020-10-20] MEDS ORDERED: Gabapentin 100 MG CAPSULE PO SCH (09:00)
[2020-10-20] MEDS ORDERED: Venlafaxine XR (24 HR) 150 MG CAP.ER.24H PO SCH (09:00)
[2020-10-20 09:06] LABS: BUN/Creatinine Ratio 12 (6-26); Blood Urea Nitrogen 8 mg/dL (6-20); Carbon Dioxide 30 mEq/L (23-29); Chloride 102 mEq/L (98-107); Glucose 90 mg/dL (70-105); Osmolality,Calculated 286 (280-300); Potassium 3.8 mEq/L (3.5-5.1); Sodium 139 mEq/L (136-145); eGFR For African Americans > 60 (> 60); eGFR For Non-African Americans > 60 (> 60)
[2020-10-20] MEDS ORDERED: Nitroglycerin 0.4 MG TAB.SUBL SL PRN (09:21)
[2020-10-20] MEDS ORDERED: *HR* FentaNYL (PF) 100 MCG/2 ML VIAL IVP PRN (09:21)
[2020-10-20] MEDS ORDERED: *HR* HYDROmorphone (PF) 1 MG/ML SYRINGE IVP PRN (09:21)
[2020-10-20] MEDS ORDERED: Albuterol 2.5 MG/3 ML NEBULIZER IH PRN (09:21)
[2020-10-20] MEDS ORDERED: ceFAZolin 2,000 MG in Water for inj. (sterile) 20 ML IVP ONE (09:47)
[2020-10-20] MEDS ORDERED: *HR* Magnesium Sulfate 1 GM/2 ML VIAL ONE (09:58)
[2020-10-20] MEDS ORDERED: CeFAZolin Syr 2,000MG/20 ML 2,000 MG/20 ML SYRINGE IVPB ONE (10:15)
[2020-10-20] MEDS ORDERED: Sugammadex Sodium 200 MG/2 ML VIAL IV ONE (10:16)
[2020-10-20] MEDS ORDERED: Acetaminophen IV 1,000 MG/100 ML BAG IVPB ONE ×2 (11:06→11:09)
[2020-10-20] MEDS: Gabapentin 100 MG CAPSULE PO SCH ×2 (15:38→20:35)
[2020-10-20] MEDS: *HR* HYDROcodone/Acet 5/325 mg TABLET PO PRN (15:38)
[2020-10-20] MEDS: Doxycycline 100 MG in 0.9 % Sodium Chloride Mini Bag 100 ML IVPB SCH (18:00)
[2020-10-21] MEDS: *HR* HYDROcodone/Acet 5/325 mg TABLET PO PRN ×2 (00:01→06:16)
[2020-10-21] MEDS: Doxycycline 100 MG in 0.9 % Sodium Chloride Mini Bag 100 ML IVPB SCH (05:39)
[2020-10-21 06:40] VITALS: BP 117/70; PULSE 96; TEMP 98.3; O2SAT 94
[2020-10-21] MEDS: Gabapentin 100 MG CAPSULE PO SCH (07:44)
[2020-10-21] MEDS ORDERED: modafiniL 100 MG TABLET PO SCH (08:00)
[2020-10-21 08:07] LABS: Basophils # 0.1 K/mcL (0.0-0.2); Basophils % 0.7 %; Eosinophils # 0.1 K/mcL (0.0-0.6); Eosinophils % 1.6 %; Hematocrit 33.3 % (35.3-44.9); Immature Granulocytes % 0.9 % (0-4); Lymphocytes # 1.6 K/mcL (0.6-4.6); Lymphocytes % 23.3 %; Mean Corpuscular HGB Conc 31.2 g/dL (31.6-35.5); Mean Corpuscular Hemoglobin 30.1 pg (28.0-33.3); Mean Corpuscular Volume 96.5 fL (83.0-100.0); Monocytes # 0.8 K/mcL (0.0-1.3); Monocytes % 11.9 %; Neutrophils # 4.3 K/mcL (1.6-8.9); Platelet Count 241 K/mcL (140-400); Red Blood Count 3.45 M/mcL (3.82-4.97); Red Cell Distribution Width 15.6 % (11.5-14.5); Segmented Neutrophils % 61.6 %
[2020-10-21 08:13] LABS: Hemoglobin 10.4 g/dL (11.5-15.4)
[2020-10-21] MEDS ORDERED: Venlafaxine XR (24 HR) 150 MG CAP.ER.24H PO SCH (09:00)
== END 2020-10-21 12:21 | disposition home or self-care (01) ==
LOC: SAMDAY 07:08 → 3BNU 07:08
PROVIDERS: ADMIT Surgery; ATTEND Surgery